=== PATIENT | female | born 1970 | race African-American/Black ===

== ENCOUNTER 2017-01-13 22:38 | Emergency (ER) | payer OTHER, MEDICAID ==
[~2017-01-13] VITALS: Ht 160 cm; Wt 121.1 kg
[~2017-01-13 22:38] MED LIST: CETI10TA16 PO; CITA20TA5 PO; GABA-586 PO; HYDR-963 PO; LISI10TA2 PO; METF500T4 PO; NORT10CA PO; OMEP20TA8 PO; PENT400T2 PO; PROM12.56 PO
[2017-01-13 22:47] VITALS: BP 179/105
[2017-01-13] MEDS ORDERED: fentaNYL PF VIAL 100 MCG/2 ML VIAL IM ONE (23:00)
--- NOTE | 2017-01-13 23:00 | PHYS DOC ---
Past Medical History Past Medical History: Arthritis, GERD, High Cholesterol, Hypertension, Migraines, Other Additional Past Medical Histor: NEUROPATHY pcos, fatty liver Past Surgical History: , Hysterectomy, Other Additional Past Surgical Histo: RIGHT KNEE Alcohol Use: None Drug Use: None Adult General Chief Complaint Chief Complaint: KNEE INJURY HPI HPI Patient is a 46 year old female with history of osteoarthritis, high cholesterol, hypertension, who presents today with moderate left knee pain that began after she fell down 3 steps. Patient denies any loss of consciousness. PCP Dr. Rock Terry Review of Systems Review of Systems Constitutional: Denies fever or chills [] Musculoskeletal: Moderate anterior left knee pain Integument: Denies rash or skin lesions [] Neurologic: Denies headache, focal weakness or sensory changes [] Endocrine: Denies polyuria or polydipsia [] Current Medications Current Medications Current Medications Medications (Trade) Dose Ordered Sig/Korey Start Time Stop Time Status Last Admin Dose Admin Fentanyl Citrate (Fentanyl 2ml Vial) 50 mcg 1X ONCE 01/13/17 23:00 01/13/17 23:01 DC 01/13/17 23:12 50 MCG Allergies Allergies Allergies Coded Allergies Type Severity Reaction Last Updated Verified budesonide Allergy Intermediate Rash 11/25/13 No enoxaparin Allergy Intermediate Rash 11/25/13 No oxycodone Allergy Intermediate 05/05/15 Yes topiramate Allergy Intermediate Rash 11/25/13 No tramadol Allergy Intermediate Rash 11/25/13 No Physical Exam Physical Exam Constitutional: Well developed, well nourished, no acute distress, non-toxic appearance. [] Skin: Warm, dry, no erythema, no rash. [] Back: No tenderness, no CVA tenderness. [] Extremities: Left knee with no obvious deformity. Tenderness diffusely on palpation of the left anterior knee. Limited range of motion to the left knee. Negative Concepción sign and negative Esequiel's sign negative anterior-posterior drawer sign to the left knee. +2 left pedal pulse. Cap refill less than 2 seconds the left lower extremity. Neurologic: Alert and oriented X 3, normal motor function, normal sensory function, no focal deficits noted. [] Psychologic: Affect normal, judgement normal, mood normal. [] Current Patient Data Vital Signs Vital Signs Date Time Temp Pulse Resp B/P (MAP) Pulse Ox O2 Delivery O2 Flow Rate FiO2 01/13/17 23:16 133/94 (107) 01/13/17 23:12 19 97 Room Air 01/13/17 22:47 98.1 87 98.1 EKG EKG [] Radiology/Procedures Radiology/Procedures [] Course & Med Decision Making Course & Med Decision Making Pertinent Labs and Imaging studies reviewed. (See chart for details) Patient is in the ED with left knee pain after falling today. Left knee x-rays interpreted by was noted for arthritis. No acute findings. Mj wrap was applied on patient's left knee by the ED RN, neurovascular exam done by me is normal, cap refill less than 2 seconds. Ice elevation encouraged. Patient takes hydrocodone at home for chronic arthritis and knee pain. She was advised to continue taking her pain medicines as needed. Provided an orthopedic doctor for follow-up in one week. Dragon Disclaimer Dragon Disclaimer This electronic medical record was generated, in whole or in part, using a voice recognition dictation system. Departure Departure Impression: Primary Impression: Left knee sprain Additional Impressions: Fall down steps Degenerative joint disease of knee, left Disposition: 01 HOME, SELF-CARE Condition: STABLE Referrals: BALAJI MUÑOZ MD (PCP) CAROL SANCHEZ II, MD call his office tomorrow for a follow up appointment Patient Instructions: Arthritis, Degenerative-Brief, Knee Sprain Additional Instructions: You were seen for left knee pain after falling. Your x-ray of the left knee is negative for any acute findings but noted for arthritis. Follow-up with the provided orthopedic doctor provided in one week if pain continues. You can also follow-up with your own primary care doctor. Ice and elevate the extremity. Problem Qualifiers Primary Impression: Left knee sprain Encounter type: initial encounter Involved ligament of knee: unspecified ligament Qualified Codes: S83.92XA - Sprain of unspecified site of left knee, initial encounter Additional Impressions: Fall down steps Encounter type: initial encounter Qualified Codes: W10.8XXA - Fall (on) ( from) other stairs and steps, initial encounter Degenerative joint disease of knee, left Osteoarthritis type: primary Qualified Codes: M17.12 - Unilateral primary osteoarthritis, left knee ISABELLABREANNA PALOMINO [employer] Jan 13, 2017 23:00
--- NOTE | 2017-01-14 07:42 | RAD ---
Left knee with patella, 4 views, 01/13/2017: History: Fall, knee pain There is severe narrowing of the knee joint space medially with subchondral sclerosis, cyst formation and spurring. There is extensive spurring at the patellofemoral articulation. There is a suggestion of a loose body in the anterior aspect of the knee joint. No acute fracture or dislocation is identified. No large joint effusion is seen. IMPRESSION: 1. Severe degenerative change. 2. No acute bony abnormality is detected.
== END 2017-01-14 00:35 | disposition home or self-care (01) ==
LOC: ER 22:38
DX: S83.92XA Sprain of unspecified site of left knee, initial encounter (principal); M17.12 Unilateral primary osteoarthritis, left knee; I10 Essential (primary) hypertension; M19.90 Unspecified osteoarthritis, unspecified site; G43.909 Migraine, unspecified, not intractable, without status migrainosus; E78.00 Pure hypercholesterolemia, unspecified; G62.9 Polyneuropathy, unspecified; Z90.710 Acquired absence of both cervix and uterus; Z98.890 Other specified postprocedural states; Z88.6 Allergy status to analgesic agent; Z88.8 Allergy status to other drugs, medicaments and biological substances; W10.8XXA Fall (on) (from) other stairs and steps, initial encounter; Y93.89 Activity, other specified; Y99.8 Other external cause status; Y92.89 Other specified places as the place of occurrence of the external cause
CPT/HCPCS: 73564; 96372; 99284; J3010

== ENCOUNTER → 2017-01-21 | Outpatient (CLI) | payer OTHER ==
[2017-01-13 23:16] VITALS: BP 133/94
--- NOTE | 2017-01-21 21:53 | KCIC ---
Bilateral digital screening mammograms: Reason for examination: Routine screening. Comparison is made to previous study dated 08/06/2015. The skin and nipples show no abnormalities. No abnormal lymph nodes are seen. The breast parenchyma is predominantly fatty. (Breast density: Category A.) There are no dominant masses, suspicious calcifications or architectural distortions. Impression: No evidence of malignancy. Recommend routine screening. BI-RADS Category 1: Negative. "Our facility is accredited by the [employer] Mammography Program." This patient's information has been entered into a reminder system for the patient to be notified with the results of her examination and a target date for the next mammogram. Electronically signed by: Gisela Toribio MD (01/21/2017 9:50 PM)
== END | disposition home or self-care (01) ==
LOC: KCIC MAMMO 09:10
PROVIDERS: ATTEND Internal Medicine
DX: Z12.31 Encounter for screening mammogram for malignant neoplasm of breast (principal)
CPT/HCPCS: G0202; 77067

== ENCOUNTER 2017-02-23 17:51 | Emergency (ER) | payer OTHER, MEDICAID ==
[~2017-02-23] VITALS: Ht 160 cm; Wt 120.7 kg
[2017-02-23 17:55] VITALS: BP 150/94
[2017-02-23] MEDS ORDERED: PRED20TA PO (18:18)
[2017-02-23] MEDS ORDERED: SULF1TAB24 PO (18:18)
--- NOTE | 2017-02-23 18:19 | PHYS DOC ---
Past Medical History Past Medical History: Arthritis, Migraines Additional Past Medical Histor: NEUROPATHY pcos, fatty liver Past Surgical History: , Hysterectomy Additional Past Surgical Histo: right knee surgery Alcohol Use: None Drug Use: None Adult General Chief Complaint Chief Complaint: SKIN PROBLEM [facility] HPI Patient is a 46 year old female presents to the emergency department stating that she's been having a rash on all since October. She states that she seen her primary care physician multiple times and has been placed on antibiotics for treatment of cellulitis as well as steroids and Benadryl. She states the rash is come back within the last few days. She denies any new uses of laundry detergents soaps or colognes. She denies any new clothing that's not been washed. She denies any new medications. Patient denies any shortness of air difficulty breathing. She does have redness noted on the left forearm. She does have swelling noted along the forearm as well. No drainage or discharge. She does have a rash noted on her left lower leg. [] Review of Systems Review of Systems Constitutional: Denies fever or chills [] Eyes: Denies change in visual acuity, redness, or eye pain [] HENT: Denies nasal congestion or sore throat [] Respiratory: Denies cough or shortness of breath [] Cardiovascular: No additional information not addressed in HPI [] GI: Denies abdominal pain, nausea, vomiting, bloody stools or diarrhea [] : Denies dysuria or hematuria [] Musculoskeletal: Denies back pain or joint pain [] Integument: Rash noted on left forearm, left leg. Neurologic: Denies headache, focal weakness or sensory changes [] Endocrine: Denies polyuria or polydipsia [] Allergies Allergies Allergies Coded Allergies Type Severity Reaction Last Updated Verified budesonide Allergy Intermediate Rash 11/25/13 No enoxaparin Allergy Intermediate Rash 11/25/13 No oxycodone Allergy Intermediate 05/05/15 Yes topiramate Allergy Intermediate Rash 11/25/13 No tramadol Allergy Intermediate Rash 11/25/13 No Physical Exam Physical Exam Constitutional: Well developed, well nourished, no acute distress, non-toxic appearance. [] HENT: Normocephalic, atraumatic, bilateral external ears normal, oropharynx moist, no oral exudates, nose normal. [] Eyes: PERRLA, EOMI, conjunctiva normal, no discharge. [] Neck: Normal range of motion, no tenderness, supple, no stridor. [] Cardiovascular:Heart rate regular rhythm, no murmur [] Lungs & Thorax: Bilateral breath sounds clear to auscultation [] Skin: Warm, dry, no erythema, patient with rash noted on the left lower leg that appears to be red and raised. No drainage or discharge noted. Patient was noted to have a reddened area on the left forearm that is red swollen and tender to touch with no drainage. Back: No tenderness Extremities: No tenderness, no cyanosis, no clubbing, ROM intact, no edema. [] Neurologic: Alert and oriented X 3, normal motor function, normal sensory function, no focal deficits noted. [] Psychologic: Affect normal, judgement normal, mood normal. [] Current Patient Data Vital Signs Vital Signs Date Time Temp Pulse Resp B/P (MAP) Pulse Ox O2 Delivery O2 Flow Rate FiO2 02/23/17 17:55 98.4 111 24 96 Room Air 98.4 EKG EKG [] Radiology/Procedures Radiology/Procedures [] Course & Med Decision Making Course & Med Decision Making Pertinent Labs and Imaging studies reviewed. (See chart for details) Patient was encouraged to take Benadryl 25 mg [id number]-[id number]-[id number] every 4-6 hours. She was instructed this medication will cause drowsiness do not take any be alert and oriented. She'll be provided with a prescription for prednisone. She was instructed to use Pepcid [id number] 1 tablet daily for the next 7 days. Patient was also be placed on Bactrim for cellulitis in the left forearm. Recommended following up with an nursing informatics specialist. Signs and symptoms to return back to emergency department as been provided. Patient agrees with discharge instructions treatment regimens and follow-up recommendations. [] Dragon Disclaimer Dragon Disclaimer This electronic medical record was generated, in whole or in part, using a voice recognition dictation system. Departure Departure Impression: Primary Impression: Contact dermatitis Additional Impression: Cellulitis Disposition: 01 HOME, SELF-CARE Condition: STABLE Referrals: BALAJI MUÑOZ MD (PCP) Patient Instructions: Cellulitis, Slkv-[id number], Contact Dermatitis, Easy-to- Read Additional Instructions: Activity as tolerated. Keep the areas clean dry and cool. Benadryl 25 mg every 6 hours. This medication will cause drowsiness do not take any be alert and oriented. Pepcid may be purchased [id number] take one tablet instructed by kinesiology professor's daily basis for the next 7 days. Prednisone as prescribed. Antibiotics as prescribed. Follow-up with an nursing informatics specialist within the next week. Return back to emergency prior signs symptoms become worse. Scripts Sulfamethoxazole/Trimethoprim (BACTRIM DS TABLET) 1 Each Tablet 1 TAB PO BID, #20 TAB Prov: ALEKS ALMANZAR APRN 02/23/17 Prednisone (PREDNISONE) 20 Mg Tablet 40 MG PO DAILY for 7 Days, #14 TAB Prov: ALEKS ALMANZAR APRN 02/23/17 Problem Qualifiers ALEKS ALMANZAR APRN Feb 23, 2017 18:19
== END 2017-02-23 18:45 | disposition home or self-care (01) ==
LOC: ER 17:51
DX: L25.9 Unspecified contact dermatitis, unspecified cause (principal); L03.114 Cellulitis of left upper limb; G43.909 Migraine, unspecified, not intractable, without status migrainosus
CPT/HCPCS: 99283

== ENCOUNTER → 2018-03-05 | Outpatient (CLI) | payer OTHER, MEDICAID | END | disposition home or self-care (01) | LOC: KCIC MAMMO 10:10 | DX: Z12.31 Encounter for screening mammogram for malignant neoplasm of breast (principal); I10 Essential (primary) hypertension; E78.00 Pure hypercholesterolemia, unspecified; M17.12 Unilateral primary osteoarthritis, left knee; G43.909 Migraine, unspecified, not intractable, without status migrainosus; K21.9 Gastro-esophageal reflux disease without esophagitis; Z90.710 Acquired absence of both cervix and uterus | CPT/HCPCS: 77067 ==

== ENCOUNTER → 2019-04-11 | Outpatient (CLI) | payer OTHER, MEDICAID ==
[~2019-04-11] MED LIST changes: -CITA20TA5 PO; +CITA20TA6 PO; -GABA-586 PO; +GABA300C18 PO; +HYDR-3135 PO; -HYDR-963 PO; +METF500T16 PO; -METF500T4 PO; -PENT400T2 PO; +PENT400T7 PO; +PRED20TA PO; -PROM12.56 PO; +PROM12.58 PO; +SULF1TAB24 PO
--- NOTE | 2019-04-11 14:57 | KCIC ---
EXAM: Bilateral digital screening mammogram with tomosynthesis. HISTORY: 48-year-old female presents for screening mammography. TECHNIQUE: Full-field digital craniocaudal and mediolateral oblique 2D and 3D tomosynthesis images of both breasts are obtained for evaluation. Computer aided detection with Nexis VisionD software version 9.3 was applied. COMPARISON: 03/05/2018 BREAST PARENCHYMAL DENSITY: Level A - Mostly fat. FINDINGS: There is no new suspicious mass, microcalcification or region of architectural distortion. IMPRESSION: BI-RADS Category 2: Benign finding(s). RECOMMENDATION: Annual mammography is recommended. If your mammogram demonstrates that you have dense breast tissue, which could hide abnormalities, and if you have other risk factors for breast cancer that have been identified, you might benefit from supplemental screening tests that may be suggested by your ordering physician. Dense breast tissue, in and of itself, is a relatively common condition. This information is not provided to cause undue concern, but rather to raise your awareness and to promote discussion with your physician regarding the presence of other risk factors, in addition to dense breast tissue. A report of your mammography results will be sent to you and your physician. You should contact your physician if you have any questions or concerns regarding this report. Mammography is a sensitive method for finding small breast cancers, but it does not detect them all and is not a substitute for careful clinical examination. A negative mammogram does not negate a clinically suspicious finding and should not result in delay in biopsying a clinically suspicious abnormality. PQRS compliance statement - Patient information was entered into a reminder system with a target due date for the next mammogram. "Our facility is accredited by the [employer] Mammography Program." Electronically signed by: Nyasia Slaughter MD (04/11/2019 2:55 PM) [facility]
== END | disposition home or self-care (01) ==
LOC: KCIC MAMMO 11:51
PROVIDERS: ATTEND Internal Medicine
DX: Z12.31 Encounter for screening mammogram for malignant neoplasm of breast (principal)
CPT/HCPCS: 77063; 77067

== ENCOUNTER 2019-06-02 12:10 | Emergency (ER) | payer OTHER, MEDICAID ==
[~2019-06-02] VITALS: Ht 160 cm; Wt 120.7 kg
[2019-06-02 12:42] VITALS: BP 150/81
--- NOTE | 2019-06-02 13:10 | PHYS DOC ---
Past Medical History Past Medical History: Arthritis, Migraines Additional Past Medical Histor: NEUROPATHY pcos, fatty liver Past Surgical History: , Hysterectomy Additional Past Surgical Histo: right knee surgery Alcohol Use: None Drug Use: None Adult General Chief Complaint Chief Complaint: KNEE SWELLING HPI HPI Patient is a 49 year old female with a history of arthritis who presents to the ED today complaining of 10 out of 10 bilateral knee pain chronic in nature but got worse this morning. Patient states her left knee hurts more than the right. Denies any injuries. She states she got injections to her left knee 3 weeks ago but it is not helping. She also reports she took hydrocodone and gabapentin with no relief. She describes the pain as sharp and constant. She states the pain is worse when she is walking. She is requesting xrays. Review of Systems Review of Systems Constitutional: Denies fever or chills [] Musculoskeletal: Reports bilateral knee pain Integument: Denies rash or skin lesions [] Neurologic: Denies headache, focal weakness or sensory changes [] All other systems were reviewed and found to be within normal limits, except as documented in this note. Allergies Allergies Allergies Coded Allergies Type Severity Reaction Last Updated Verified budesonide Allergy Intermediate Rash 11/25/13 No enoxaparin Allergy Intermediate Rash 11/25/13 No oxycodone Allergy Intermediate 05/05/15 Yes topiramate Allergy Intermediate Rash 11/25/13 No tramadol Allergy Intermediate Rash 11/25/13 No Physical Exam Physical Exam Constitutional: Well developed, well nourished, no acute distress, non-toxic appearance. [] Skin: Warm, dry, no erythema, no rash. [] Back: No tenderness, no CVA tenderness. [] Extremities: Bilateral knees with no obvious deformity, no tenderness on exam, full range of motion +2 bilateral pedal pulses. Cap refill less than 2 seconds i n all extremities. Sensation intact Neurologic: Alert and oriented X 3, normal motor function, normal sensory function, no focal deficits noted. [] Psychologic: Affect normal, judgement normal, mood normal. [] Current Patient Data Vital Signs Vital Signs Date Time Temp Pulse Resp B/P (MAP) Pulse Ox O2 Delivery O2 Flow Rate FiO2 06/02/19 12:42 98.1 89 16 150/81 (104) 97 Room Air 98.1 EKG EKG [] Radiology/Procedures Radiology/Procedures []PROCEDURE: KNEE BILAT 3V KNEE BILAT 3V History: Chronic pain. Arthritis. Technique: 3 views bilateral knees. Comparison: None. Findings: Right knee: Moderate to advanced tricompartment knee DJD most prominent within the medial and patellofemoral compartments. Large osteophytes. Small knee joint effusion. Normal limit. No fracture. Left knee: Advanced tricompartment knee DJD most prominent within the patellofemoral and medial compartment. Large osteophytes. Tiny knee joint effusion. Normal limit. No fracture. Genu varus alignment. Impression: 1. Advanced left and moderately advanced right knee DJD. Electronically signed by: Gene Emerson DO (06/02/2019 1:29 PM) [facility] DICTATED and SIGNED BY: GENE EMERSON DO DATE: 06/02/19 9526 Course & Med Decision Making Course & Med Decision Making Pertinent Labs and Imaging studies reviewed. (See chart for details) This is a 14-year-old female patient presented to the ED today with bilateral knee pain, no known injury. Patient has history of chronic arthritis to the knees. She is requesting x-rays of the knees. Bilateral knee xrays noted for -Advanced left and moderately advanced right knee DJD. D/c to home. Ortho for follow up . Dragon Disclaimer Dragon Disclaimer This electronic medical record was generated, in whole or in part, using a voice recognition dictation system. Departure Departure Impression: Primary Impression: Chronic pain of both knees Additional Impressions: Degenerative joint disease of knee, right Degenerative joint disease of knee, left Disposition: 01 HOME, SELF-CARE Condition: STABLE Referrals: BALAJI MUÑOZ MD (PCP) MONI RIZZO MD follow up as soon as you can Patient Instructions: Arthritis, Degenerative-Brief Additional Instructions: You were evaluated in the emergency room for chronic bilateral knee pain. Your x-ray shows you have arthritis in both knees. Please continue following up with the primary care doctor and taking your pain medicines at home. We also provided you an orthopedic doctor, contact the office today and set up a follow-up appointment. Problem Qualifiers Additional Impressions: Degenerative joint disease of knee, right Osteoarthritis type: unspecified Qualified Codes: M17.11 - Unilateral primary osteoarthritis, right knee Degenerative joint disease of knee, left Osteoarthritis type: unspecified Qualified Codes: M17.12 - Unilateral primary osteoarthritis, left knee MUTUNGA,BREANNA PET CARETAKER Jun 02, 2019 13:10
--- NOTE | 2019-06-02 13:31 | RAD ---
KNEE BILAT 3V History: Chronic pain. Arthritis. Technique: 3 views bilateral knees. Comparison: None. Findings: Right knee: Moderate to advanced tricompartment knee DJD most prominent within the medial and patellofemoral compartments. Large osteophytes. Small knee joint effusion. Normal limit. No fracture. Left knee: Advanced tricompartment knee DJD most prominent within the patellofemoral and medial compartment. Large osteophytes. Tiny knee joint effusion. Normal limit. No fracture. Genu varus alignment. Impression: 1. Advanced left and moderately advanced right knee DJD. Electronically signed by: Gene Ordoñez DO (06/02/2019 1:29 PM) [facility]
== END 2019-06-02 13:52 | disposition home or self-care (01) ==
LOC: ER 12:10
DX: G89.29 Other chronic pain (principal); M25.561 Pain in right knee; M25.562 Pain in left knee; M17.11 Unilateral primary osteoarthritis, right knee; M17.12 Unilateral primary osteoarthritis, left knee; G43.909 Migraine, unspecified, not intractable, without status migrainosus; Z90.710 Acquired absence of both cervix and uterus; Z98.890 Other specified postprocedural states; Z88.5 Allergy status to narcotic agent; Z88.6 Allergy status to analgesic agent; Z88.8 Allergy status to other drugs, medicaments and biological substances
CPT/HCPCS: 73562; 99284

== ENCOUNTER 2019-06-19 18:28 | Emergency (ER) | payer OTHER, MEDICAID ==
[~2019-06-19] VITALS: Ht 160 cm; Wt 120.7 kg
[2019-06-19 19:00] LABS: BILIRUBIN,URINE NEGATIVE (NEG); CLARITY,URINE CLEAR; COLOR,URINE YELLOW; NITRITE,URINE NEGATIVE (NEG); PH,URINE 5.5; PROTEIN,URINE NEGATIVE (NEG-TRACE); UROBILINOGEN,URINE 0.2 mg/dL (0.2 mg/dL)
[2019-06-19] MEDS ORDERED: IV NORMAL SALINE 1000ML BAG 1,000 ML IV ONE (19:00)
[2019-06-19] MEDS ORDERED: MORPHINE SULFATE 4 MG/ML VIAL. IV ONE (19:00)
[2019-06-19] MEDS ORDERED: ONDANSETRON PF 4 MG/2 ML VIAL. IVP ONE (19:00)
--- NOTE | 2019-06-19 19:02 | PHYS DOC ---
Past Medical History Past Medical History: Arthritis, Migraines Additional Past Medical Histor: NEUROPATHY pcos, fatty liver Past Surgical History: , Hysterectomy Additional Past Surgical Histo: right knee surgery Alcohol Use: None Drug Use: None Adult General Chief Complaint Chief Complaint: FLANK PAIN HPI HPI Patient is a 49 year old female presents acute onset left flank pain one week ago. Pain is intermittent described as sharp and lasts minutes at a time. Does not reproduce with position change palpation or movement. Pain is nonradiating. It is rated moderate to severe. It is not associated with nausea vomiting diarrhea or abdominal pain. Patient denies fevers chills, sweats. No urinary frequency urgency dysuria. Denies history of kidney stones. No other acute symptoms or complaints. Patient has not been evaluated for her symptoms prior to today's ED visit. [] Review of Systems Review of Systems Review symptoms as per history of present illness. All other review symptoms are negative. All other systems were reviewed and found to be within normal limits, except as documented in this note. Current Medications Current Medications Current Medications Medications (Trade) Dose Ordered Sig/Korey Start Time Stop Time Status Last Admin Dose Admin Morphine Sulfate (Morphine Sulfate) 4 mg 1X ONCE 06/19/19 19:00 06/19/19 19:01 DC 06/19/19 19:16 4 MG Ondansetron HCl (Zofran) 4 mg 1X ONCE 06/19/19 19:00 06/19/19 19:01 DC 06/19/19 19:15 4 MG Sodium Chloride 1,000 ml @ 1,000 mls/hr 1X ONCE 06/19/19 19:00 06/19/19 19:59 DC 06/19/19 19:16 1,000 MLS/HR Allergies Allergies Allergies Coded Allergies Type Severity Reaction Last Updated Verified budesonide Allergy Intermediate Rash 11/25/13 No enoxaparin Allergy Intermediate Rash 11/25/13 No oxycodone Allergy Intermediate 05/05/15 Yes topiramate Allergy Intermediate Rash 11/25/13 No tramadol Allergy Intermediate Rash 11/25/13 No Physical Exam Physical Exam Constitutional: Well developed, well nourished, no acute distress, non-toxic appearance. [] HENT: Normocephalic, atraumatic, bilateral external ears normal, oropharynx moist, no oral exudates, nose normal. [] Eyes: PERRLA, EOMI, conjunctiva normal, no discharge. [] Neck: Normal range of motion, no tenderness, supple, no stridor. [] Cardiovascular:Heart rate regular rhythm, no murmur [] Lungs & Thorax: Bilateral breath sounds clear to auscultation [] Abdomen: Bowel sounds normal, soft, and tender [] Skin: Warm, dry, no erythema, no rash. [] Back: No tenderness, L CVA tenderness. Pain does not reproduce with trunk rotation or [] Extremities: No tenderness, no cyanosis, no clubbing, ROM intact, no edema. [] Neurologic: Alert and oriented X 3, normal motor function, normal sensory function, no focal deficits noted. [] Psychologic: Affect normal, judgement normal, mood normal. [] Current Patient Data Vital Signs Vital Signs Date Time Temp Pulse Resp B/P (MAP) Pulse Ox O2 Delivery O2 Flow Rate FiO2 06/19/19 20:04 16 97 Room Air 06/19/19 18:36 98.3 123 156/96 (116) 98.3 Lab Values Laboratory Tests Test 06/19/19 18:47 06/19/19 19:07 Urine Collection Type Unknown Urine Color Yellow Urine Clarity Clear Urine pH 5.5 Urine Specific [place] 1.025 Urine Protein Negative mg/dL (NEG-TRACE) Urine Glucose (UA) Negative mg/dL (NEG) Urine Ketones (Stick) Negative mg/dL (NEG) Urine Blood Small (NEG) Urine Nitrite Negative (NEG) Urine Bilirubin Negative (NEG) Urine Urobilinogen Dipstick 0.2 mg/dL (0.2 mg/dL) Urine Leukocyte Esterase Negative (NEG) Urine RBC 1-2 /HPF (0-2) Urine WBC Occ /HPF (0-4) Urine Squamous Epithelial Cells Mod /LPF Urine Bacteria Few /HPF (0-FEW) Urine Mucus Mod /LPF White Blood Count 11.8 x10^3/uL (4.0-11.0) H Red Blood Count 4.70 x10^6/uL (3.50-5.40) Hemoglobin 13.7 g/dL (12.0-15.5) Hematocrit 42.6 % (36.0-47.0) Mean Corpuscular Volume 91 fL (79-100) Mean Corpuscular Hemoglobin 29 pg (25-35) Mean Corpuscular Hemoglobin Concent 32 g/dL (31-37) Red Cell Distribution Width 14.2 % (11.5-14.5) Platelet Count 371 x10^3/uL (140-400) Neutrophils (%) (Auto) 60 % (31-73) Lymphocytes (%) (Auto) 30 % (24-48) Monocytes (%) (Auto) 9 % (0-9) Eosinophils (%) (Auto) 1 % (0-3) Basophils (%) (Auto) 1 % (0-3) Neutrophils # (Auto) 7.0 x10^3/uL (1.8-7.7) Lymphocytes # (Auto) 3.5 x10^3/uL (1.0-4.8) Monocytes # (Auto) 1.1 x10^3/uL (0.0-1.1) Eosinophils # (Auto) 0.1 x10^3/uL (0.0-0.7) Basophils # (Auto) 0.1 x10^3/uL (0.0-0.2) Sodium Level 144 mmol/L (136-145) Potassium Level 3.7 mmol/L (3.5-5.1) Chloride Level 105 mmol/L (98-107) Carbon Dioxide Level 26 mmol/L (21-32) Anion Gap 13 (6-14) Blood Urea Nitrogen 12 mg/dL (7-20) Creatinine 1.0 mg/dL (0.6-1.0) Estimated GFR (Cockcroft-Gault) 71.0 BUN/Creatinine Ratio 12 (6-20) Glucose Level 97 mg/dL (70-99) Calcium Level 10.0 mg/dL (8.5-10.1) Total Bilirubin 0.2 mg/dL (0.2-1.0) Aspartate Amino Transferase (AST) 15 U/L (15-37) Alanine Aminotransferase (ALT) 20 U/L (14-59) Alkaline Phosphatase 114 U/L (46-116) Total Protein 8.9 g/dL (6.4-8.2) H Albumin 4.2 g/dL (3.4-5.0) Albumin/Globulin Ratio 0.9 (1.0-1.7) L Laboratory Tests 06/19/19 19:07 Laboratory Tests 06/19/19 19:07 EKG EKG [] Radiology/Procedures Radiology/Procedures [CT abdomen pelvis: Right upper pole kidney stone. No acute intra-abdominal ds.] Course & Med Decision Making Course & Med Decision Making Pertinent Labs and Imaging studies reviewed. (See chart for details) [L flank pain without evidence of urinary tract infection or kidney stone. Will treat supportively] Rylee Disclaimer Dragon Disclaimer This electronic medical record was generated, in whole or in part, using a voice recognition dictation system. Departure Departure Impression: Primary Impression: Left flank pain Disposition: HOME, SELF-CARE Condition: STABLE Referrals: BALAJI MUÑOZ MD (PCP) Patient Instructions: Back Pain, Adult, [id number] Additional Instructions: You were evaluated in the emergency department for left flank pain. Lab and CT imaging studies were performed and are nondiagnostic. The exact cause of your symptoms has not been determined. Please take pain medications as directed and follow-up with your PCP for re-evaluation. Scripts Cyclobenzaprine Hcl (CYCLOBENZAPRINE HCL) 10 Mg Tablet 10 MG PO TID PRN for MODERATE PAIN for 10 Days, #30 TAB Prov: VERONICA CANELA DO 06/19/19 Tramadol Hcl (TRAMADOL HCL) 50 Mg Tablet 50 MG PO Q6H PRN for PAIN for 3 Days, #15 TAB 0 Refills Prov: VERONICA CANELA DO 06/19/19 VERONICA CANELA DO Jun 19, 2019 19:01
[2019-06-19 19:04] LABS: BACTERIA,URINE FEW /HPF (0-FEW); WBC,URINE OCC /HPF (0-4)
[2019-06-19 19:05] LABS: SQUAMOUS EPITHELIAL CELL,UR MOD /LPF
[2019-06-19 19:19] LABS: BASO # 0.1 x10^3/uL (0.0-0.2); BASO % 1 % (0-3); EOS # 0.1 x10^3/uL (0.0-0.7); EOS % 1 % (0-3); HEMATOCRIT 42.6 % (36.0-47.0); HEMOGLOBIN 13.7 g/dL (12.0-15.5); LYMPH # 3.5 x10^3/uL (1.0-4.8); LYMPH % 30 % (24-48); MEAN CORPUSCULAR HEMOGLOBIN 29 pg (25-35); MEAN CORPUSCULAR HGB CONC 32 g/dL (31-37); MEAN CORPUSCULAR VOLUME 91 fL (79-100); MONO # 1.1 x10^3/uL (0.0-1.1); MONO % 9 % (0-9); NEUT % 60 % (31-73); PLATELET COUNT 371 x10^3/uL (140-400); RED CELL DISTRIBUTION WIDTH 14.2 % (11.5-14.5); WHITE BLOOD COUNT 11.8 x10^3/uL (4.0-11.0)
[2019-06-19 19:28] LABS: POTASSIUM 3.7 mmol/L (3.5-5.1)
[2019-06-19 19:34] LABS: ALBUMIN 4.2 g/dL (3.4-5.0); ALBUMIN/GLOBULIN RATIO 0.9 (1.0-1.7); TOTAL BILIRUBIN 0.2 mg/dL (0.2-1.0); TOTAL PROTEIN 8.9 g/dL (6.4-8.2)
[2019-06-19 20:17] VITALS: BP 121/68
--- NOTE | 2019-06-19 20:40 | RAD ---
Exam: CT abdomen and pelvis without contrast INDICATION: Left flank pain TECHNIQUE: Sequential axial images through the abdomen and pelvis obtained without IV contrast. Sagittal and coronal reformatted images were reconstructed from the axial data and reviewed. Comparisons: None FINDINGS: Heart size is normal. No pericardial effusion. Visualized lung bases are clear. No pleural effusion. Evaluation of solid organs is limited secondary to noncontrast technique. Liver, spleen, pancreas, gallbladder and adrenals are unremarkable. No perinephric inflammation or hydronephrosis. There is a nonobstructing 4 mm calculus at the upper pole of the right kidney. No ureteral calculi are identified. Bladder is partially distended and appears thin-walled. Uterus is absent. No abnormal adnexal mass. Large and small bowel are unremarkable. Appendix is normal. No free intraabdominal air or fluid. Abdominal aorta has a normal course and caliber. No enlarged abdominal lymph nodes. No suspicious osseous lesions or acute fractures. IMPRESSION: 1. No ureteral calculi or evidence for obstructive uropathy. 2. A 4 mm nonobstructing calculus at the upper pole of the right kidney. Exposure: One or more of the following in the visualized dose reduction techniques were utilized for this examination: 1. Automated exposure control 2. Adjustment of the MA and/or KV according to patient size 3. Use of iterative of reconstructive technique Electronically signed by: Devonte Peters MD (06/19/2019 8:37 PM) [id number]
[2019-06-19] MEDS ORDERED: CYCL10TA2 PO (21:10)
[2019-06-19] MEDS ORDERED: TRAM50TA PO (21:10)
[2019-06-19] MEDS ORDERED: HYDR-2761 PO (21:38)
== END 2019-06-19 21:42 | disposition home or self-care (01) ==
LOC: ER 18:28
DX: R10.9 Unspecified abdominal pain (principal); N20.0 Calculus of kidney; G43.909 Migraine, unspecified, not intractable, without status migrainosus; Z90.710 Acquired absence of both cervix and uterus; Z88.5 Allergy status to narcotic agent; Z88.6 Allergy status to analgesic agent; Z88.8 Allergy status to other drugs, medicaments and biological substances
CPT/HCPCS: 36415; 74176; 80053; 81001; 85025; 96374; 96375; 99285; J2270; J2405; J7030

== ENCOUNTER 2019-07-07 17:23 | Emergency (ER) | payer OTHER, MEDICAID ==
[~2019-07-07] VITALS: Ht 162.6 cm; Wt 120.7 kg
[~2019-07-07 17:23] MED LIST changes: +CYCL10TA2 PO; +HYDR-2761 PO; +TRAM50TA PO
[2019-07-07 17:38] VITALS: BP 132/85
--- NOTE | 2019-07-07 18:21 | PHYS DOC ---
Past Medical History Past Medical History: Arthritis, Migraines Additional Past Medical Histor: NEUROPATHY pcos, fatty liver (ALEKS REDD APRN) Past Surgical History: , Hysterectomy Additional Past Surgical Histo: right knee surgery (ALEKS REDD APRN) Alcohol Use: None Drug Use: None (ALEKS REDD APRN) Attending Signature I have participated in the care of this patient and I have reviewed and agree with all pertinent clinical information above including history, exam, and recommendations. (SENG ROJAS MD) Adult General Chief Complaint Chief Complaint: SHOULDER INJURY HPI HPI Patient is a 49 year old female who presents with a cane and was walking outside of a dizziness when she tripped in the parking lot of a business today. Patient states she fell scraping up her right elbow and hurting her left shoulder. Patient states she is due for a tetanus shot. Patient's ring her pain a 10 out 10. (ALEKS REDD APRN) Review of Systems Review of Systems Musculoskeletal: Denies back pain. Left shoulder joint pain [] Integument: Right elbow abrasion. Denies rash or skin lesions [] All other systems were reviewed and found to be within normal limits, except as documented in this note. (ALEKS REDD APRN) Current Medications Current Medications Current Medications Medications (Trade) Dose Ordered Sig/Korey Start Time Stop Time Status Last Admin Dose Admin Diphtheria/ Tetanus/Acell Pertussis (Boostrix) 0.5 ml ONCE ONCE 07/07/19 18:30 07/07/19 18:31 UNV Neomycin/ Polymyxin/ Bacitracin (Triple Antibiotic Ointment) 1 pkt 1X ONCE 07/07/19 18:30 07/07/19 18:31 DC (SENG ROJAS MD) Allergies Allergies Allergies Coded Allergies Type Severity Reaction Last Updated Verified budesonide Allergy Intermediate Rash 11/25/13 No enoxaparin Allergy Intermediate Rash 11/25/13 No oxycodone Allergy Intermediate 05/05/15 Yes topiramate Allergy Intermediate Rash 11/25/13 No tramadol Allergy Intermediate Rash 11/25/13 No (SENG ROJAS MD) Physical Exam Physical Exam Constitutional: Well developed, well nourished, no acute distress, non-toxic appearance. [] HENT: Normocephalic, atraumatic, bilateral external ears normal, oropharynx moist, no oral exudates, nose normal. [] Eyes: PERRLA, EOMI, conjunctiva normal, no discharge. [] Neck: Normal range of motion, no tenderness, supple, no stridor. [] Cardiovascular:Heart rate regular rhythm, no murmur [] Lungs & Thorax: Bilateral breath sounds clear to auscultation [] Abdomen: Bowel sounds normal, soft, no tenderness, no masses, no pulsatile masses. [] Skin: Warm, dry, no erythema, no rash. Right elbow abrasion. [] Back: No tenderness, no CVA tenderness. [] Extremities: Left lateral, anterior, posterior shoulder tenderness, no cyanosis, no clubbing, ROM intact up to shoulder height, no edema. [] Neurologic: Alert and oriented X 3, normal motor function, normal sensory function, no focal deficits noted. [] Psychologic: Affect normal, judgement normal, mood normal. [] (ALEKS REDD APRN) Current Patient Data Vital Signs Vital Signs Date Time Temp Pulse Resp B/P (MAP) Pulse Ox O2 Delivery O2 Flow Rate FiO2 07/07/19 17:38 97.8 107 20 132/85 (101) 99 Room Air 97.8 (SENG ROJAS MD) EKG EKG [] (ALEKS REDD APRN) Radiology/Procedures Radiology/Procedures [] (ALEKS REDD APRN) Impressions: [facility] [address] [place] [address] IMAGING REPORT Signed PATIENT: WILBUR BLOUNT DACCOUNT: [id number] : 1970 LOCATION: ER AGE: 49 SEX: F EXAM STATUS: REG ER ORD. PHYSICIAN: ALEKS REDD APRN REASON: fall PROCEDURE: SHOULDER 2+V LEFT 3 views left shoulder dated 07/07/2019. No comparison available. Clinical data indication: Pain after fall. FINDINGS: 3 views of the left shoulder show normal bony alignment. No displaced fracture. No acute osseous or articular abnormality. Mild degenerative change of the glenohumeral joint and mild degenerative change of the AC joint. IMPRESSION: 1. No acute radiographic abnormality. 2. Degenerative changes as described. Electronically signed by: Pepito Kay MD (07/07/2019 6:24 PM) [id number] DICTATED and SIGNED BY: PEPITO KAY MD DATE: 07/07/19 182 (ALEKS REDD APRN) Course & Med Decision Making Course & Med Decision Making There is right shoulder tenderness to the anterior, posterior, lateral shoulder with palpation. Patient does have range of motion in the shoulder but can only bringing up to shoulder height due to pain. There is no laxity in the joint. No deformity, bruising or swelling in the joint. Denies any numbness or tingling or radiation of the pain. There was no tenderness, swelling or deformity in the rest of the arm with palpation. Good range of motion and no swelling or bruising in the left wrist. Patient has a right elbow abrasion, bleeding controlled, there is full range of motion of the right elbow in no swelling, deformity or br uising. This abrasion is cleaned with chlorhexidine and bandaged. There are no foreign bodies in the elbow abrasion. She denies hitting her head or syncope. She denies any dizziness. PERRLA. Patient has paper work showing she is due for tetanus in 2021. Patient is wanting to wait until 2021. (ALEKS REDD APRN) Dragon Disclaimer Dragon Disclaimer This electronic medical record was generated, in whole or in part, using a voice recognition dictation system. (ALEKS REDD APRN) Departure Departure Impression: Primary Impression: Shoulder pain Disposition: HOME, SELF-CARE Condition: STABLE Referrals: BALAJI MUÑOZ MD (PCP) Patient Instructions: Contusion Additional Instructions: Follow up with primary care provider. Take Ibuprofen or Tylenol for pain. Use ice to help with any swelling. Problem Qualifiers Primary Impression: Shoulder pain Chronicity: acute Laterality: left Qualified Codes: M25.512 - Pain in left shoulder ALEKS REDD APRN Jul 07, 2019 18:20 SENG ROJAS MD Jul 08, 2019 04:55
--- NOTE | 2019-07-07 18:26 | RAD ---
3 views left shoulder dated 07/07/2019. No comparison available. Clinical data indication: Pain after fall. FINDINGS: 3 views of the left shoulder show normal bony alignment. No displaced fracture. No acute osseous or articular abnormality. Mild degenerative change of the glenohumeral joint and mild degenerative change of the AC joint. IMPRESSION: 1. No acute radiographic abnormality. 2. Degenerative changes as described. Electronically signed by: Pepito Kay MD (07/07/2019 6:24 PM) [id number]
[2019-07-07] MEDS ORDERED: DIPHTH,PERTUSS(ACELL),TET TOX 0.5 ML DISP.SYRIN. VAX IM ONE (18:30)
[2019-07-07] MEDS ORDERED: NEOMY/BACITR/POLYMYXIN OINT PACKET. TP ONE (18:30)
== END 2019-07-07 18:53 | disposition home or self-care (01) ==
LOC: ER 17:23
DX: M25.512 Pain in left shoulder (principal); M25.521 Pain in right elbow; G89.11 Acute pain due to trauma; R42 Dizziness and giddiness; Z88.5 Allergy status to narcotic agent; G43.909 Migraine, unspecified, not intractable, without status migrainosus; Z88.6 Allergy status to analgesic agent; Z88.8 Allergy status to other drugs, medicaments and biological substances; W01.0XXA Fall on same level from slipping, tripping and stumbling without subsequent striking against object, initial encounter; Y93.89 Activity, other specified; Y92.481 Parking lot as the place of occurrence of the external cause; Y99.8 Other external cause status
CPT/HCPCS: 73030; 99284

== ENCOUNTER → 2020-04-27 | Outpatient (CLI) | payer MEDICARE, MEDICAID ==
--- NOTE | 2020-04-27 08:51 | KCIC ---
Bilateral digital screening mammograms with 3-D tomosynthesis: Reason for examination: Routine screening. Bilateral breast reduction in the July 2019. Comparison is made to previous study dated 04/11/2019. Bilateral mammograms in CC and oblique projections were obtained with 2-D imaging and 3-D tomosynthesis imaging on a [employer] unit and reviewed on the workstation. Interpretation was made with the benefit of CAD. The skin and nipples show no abnormalities. No abnormal axillary lymph nodes are seen. The breast parenchyma is predominantly fatty. (Breast density: Category A.) There are postop changes from breast reduction. There are no dominant masses, suspicious calcifications or architectural distortion. Impression: No evidence of malignancy. Recommend routine screening. BI-RAD Category 2: Benign. "Our facility is accredited by the [employer] Mammography Program." This patient's information has been entered into a reminder system for the patient to be notified with the results of her examination and a target date for the next mammogram. Electronically signed by: Gisela Toribio MD (04/27/2020 8:48 AM) [id number]
== END | disposition home or self-care (01) ==
LOC: KCIC MAMMO 07:50
PROVIDERS: ATTEND Internal Medicine
DX: Z12.31 Encounter for screening mammogram for malignant neoplasm of breast (principal)
CPT/HCPCS: 77063; 77067